=== PATIENT | male | born 1955 | race Caucasian/White ===

== ENCOUNTER 2021-01-31 16:24 | Observation (INO) | payer OTHER ==
[~2021-01-31] VITALS: Ht 185 cm; Wt 86.0 kg
[~2021-01-31 16:24] MED LIST: ENXP40I.4 SC; FAMO10TA43 PO; METH750T3 PO; NAPR375T2 PO; OXYC-12 PO
[2021-01-31] MEDS ORDERED: fentaNYL INJ 100 MCG/2 ML AMP IVP ONE (16:45)
[2021-01-31 16:52] LABS: BASOPHILS % (AUTO) 1 % (0-10); EOSINOPHILS # (AUTO) 0.3 10^3/uL (0.0-0.3); EOSINOPHILS % (AUTO) 6 % (0-10); HEMATOCRIT 36 % (40-54); HEMOGLOBIN 11.9 g/dL (13.3-17.7); LYMPHOCYTES # (AUTO) 1.3 10^3/uL (1.0-4.0); LYMPHOCYTES % (AUTO) 25 % (12-44); MEAN CORPUSCULAR HEMOGLOBIN 31 pg (25-34); MEAN CORPUSCULAR HGB CONC 33 g/dL (32-36); MEAN CORPUSCULAR VOLUME 93 fL (80-99); MEAN PLATELET VOLUME 8.9 fL (9.0-12.2); MONOCYTES # (AUTO) 0.4 10^3/uL (0.0-1.0); MONOCYTES % (AUTO) 7 % (0-12); NEUTROPHILS % (AUTO) 60 % (42-75); PLATELET COUNT 246 10^3/uL (130-400)
[2021-01-31 17:00] LABS: ALBUMIN 4.2 GM/DL (3.2-4.5); CHLORIDE 101 MMOL/L (98-107); POTASSIUM 4.4 MMOL/L (3.6-5.0); SODIUM 137 MMOL/L (135-145)
[2021-01-31 17:01] LABS: CALCIUM 9.1 MG/DL (8.5-10.1)
[2021-01-31 17:02] LABS: GLUCOSE 114 MG/DL (70-105); TOTAL PROTEIN 7.5 GM/DL (6.4-8.2)
--- NOTE | 2021-01-31 17:02 | Diagnostic Imaging Report ---
Clinical indication: Patient with sepsis. Exam: Portable chest x-ray, upright view. Comparisons: Chest x-ray dated 06/29/2013. Findings: Lungs/pleura: There is minimal atelectasis or scarring of left lung base. Otherwise, lungs are clear. There is no pneumothorax. There is no pleural effusion. Mediastinum: Unremarkable. Pulmonary vasculature: Unremarkable. Heart: Unremarkable. Bones/extrathoracic soft tissue: There are hypertrophic spurs involving the thoracic spine. Impression: There is no radiographic evidence of acute cardiopulmonary process. Dictated by: Dictated on workstation # [id number]
--- NOTE | 2021-01-31 17:02 | Diagnostic Imaging Report ---
CLINICAL INDICATION: Patient with foot pain. EXAM: X-ray of the right foot, 3 views. COMPARISON: None. FINDINGS: There is no acute fracture or dislocation. There is no significant bone or joint abnormality. IMPRESSION: There is no acute fracture or dislocation. Dictated by: Dictated on workstation # [id number]
[2021-01-31 17:03] LABS: CARBON DIOXIDE 24 MMOL/L (21-32); INR 0.9 (0.8-1.4); PROTHROMBIN TIME PATIENT 12.5 SEC (12.2-14.7)
[2021-01-31 17:04] LABS: BILIRUBIN,TOTAL 0.4 MG/DL (0.1-1.0)
[2021-01-31 17:06] LABS: BILIRUBIN,URINE NEGATIVE (NEGATIVE); CLARITY,URINE CLEAR; COLOR,URINE YELLOW; GLUCOSE, URINE (UA) NEGATIVE (NEGATIVE); KETONES,URINE NEGATIVE (NEGATIVE); LEUKOCYTE ESTERASE ,URINE NEGATIVE (NEGATIVE); NITRITE,URINE NEGATIVE (NEGATIVE); PH,URINE 5.5 (5-9); PROTEIN,URINE NEGATIVE (NEGATIVE)
[2021-01-31 17:06] LABS: ALKALINE PHOSPHATASE 72 U/L (40-136); CREATININE SERUM 0.84 MG/DL (0.60-1.30); GFR ESTIMATED > 60
[2021-01-31 17:07] LABS: BUN/CREATININE RATIO 18
[2021-01-31 17:09] LABS: ALANINE AMINOTRANSFERASE 11 U/L (0-55)
[2021-01-31 17:11] LABS: ERYTHROCYTE SEDIMENTATION RATE 32 MM/HR (0-30)
[2021-01-31 17:13] LABS: BACTERIA,URINE NEGATIVE /HPF; SQUAMOUS EPITHELIAL CELL,UR RARE /HPF
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
[2021-01-31] MEDS ORDERED: cefTRIAXone FOR IV USE 1,000 MG in WATER (STERILE) FOR INJECTION 10 ML IV ONE (18:45)
[2021-01-31] MEDS ORDERED: RX-OXYCODONE/APAP 5-325 MG #4 TAB PK PO PRN (19:00)
[2021-01-31] MEDS ORDERED: oxyCODONE/APAP 5/325MG (PERCOCET 5) TABLET PO ONE (19:00)
--- NOTE | 2021-01-31 19:50 | Diagnostic Imaging Report ---
INDICATION: Right leg pain and swelling COMPARISON: None. TECHNIQUE: Duplex, grayscale and color-flow imaging of the right lower extremity venous system was performed. FINDINGS: The common femoral vein, superficial femoral vein, profunda femoris and popliteal veins are normal. These vessels show normal compressibility, color flow and Doppler augmentation. Evaluation of the deep calf veins demonstrates thrombus within the mid to distal peroneal vein. Posterior tibial vein is patent. IMPRESSION: 1. Occlusive thrombus of the peroneal vein of the right calf. 2. No cephalad extension into the thigh. Dictated by: Dictated on workstation # [id number]
[2021-01-31] MEDS ORDERED: PANTOPRAZOLE 40 MG (PROTONIX) VIAL IV ONE (20:00)
[2021-01-31] MEDS ORDERED: ENOXAPARIN 100 MG/1 ML (LOVENOX) SYR SC ONE (20:15)
[2021-01-31] MEDS ORDERED: CLINDAMYCIN 150 MG (CLEOCIN) CAP PO ONE (20:15)
[2021-01-31] MEDS ORDERED: morphine ER 15 MG (MS CONTIN) TAB PO ONE (20:15)
[2021-01-31] MEDS ORDERED: ONDANSETRON 4 MG/2 ML (SDV) Z0FRAN IVP PRN (21:30)
[2021-01-31 21:33] VITALS: BP 149/97
[2021-01-31] MEDS ORDERED: OXYC20TA3 PO (22:02)
[2021-01-31] MEDS ORDERED: NF-ACI30T PO (22:02)
[2021-01-31] MEDS ORDERED: MORP60TA28 PO (22:02)
[2021-01-31] MEDS ORDERED: DULO20CA PO (22:08)
[2021-01-31] MEDS ORDERED: GABA300C PO (22:09)
[2021-01-31 23:33] VITALS: BP 132/76
[2021-02-01 03:31] VITALS: BP 163/81
[2021-02-01] MEDS ORDERED: CLINDAMYCIN 600 MG/50 ML IVPB 50 ML IV SCH (04:00)
[2021-02-01 05:30] LABS: BASOPHILS % (AUTO) 1 % (0-10); EOSINOPHILS # (AUTO) 0.3 10^3/uL (0.0-0.3); EOSINOPHILS % (AUTO) 11 % (0-10); HEMATOCRIT 35 % (40-54); HEMOGLOBIN 11.6 g/dL (13.3-17.7); LYMPHOCYTES # (AUTO) 0.9 10^3/uL (1.0-4.0); LYMPHOCYTES % (AUTO) 34 % (12-44); MEAN CORPUSCULAR HEMOGLOBIN 30 pg (25-34); MEAN CORPUSCULAR HGB CONC 33 g/dL (32-36); MEAN CORPUSCULAR VOLUME 91 fL (80-99); MEAN PLATELET VOLUME 9.2 fL (9.0-12.2); MONOCYTES # (AUTO) 0.3 10^3/uL (0.0-1.0); MONOCYTES % (AUTO) 10 % (0-12); NEUTROPHILS # (AUTO) 1.2 10^3/uL (1.8-7.8); NEUTROPHILS % (AUTO) 43 % (42-75); PLATELET COUNT 221 10^3/uL (130-400); WHITE BLOOD COUNT 2.7 10^3/uL (4.3-11.0)
[2021-02-01 05:43] LABS: CHLORIDE 102 MMOL/L (98-107); SODIUM 139 MMOL/L (135-145)
[2021-02-01 05:45] LABS: CALCIUM 8.5 MG/DL (8.5-10.1); GLUCOSE 93 MG/DL (70-105)
[2021-02-01 05:47] LABS: CARBON DIOXIDE 24 MMOL/L (21-32)
[2021-02-01 05:49] LABS: CREATININE SERUM 0.75 MG/DL (0.60-1.30); GFR ESTIMATED > 60
[2021-02-01 05:50] LABS: BUN/CREATININE RATIO 16
[2021-02-01 07:55] VITALS: BP 120/70
[2021-02-01] MEDS ORDERED: ENOXAPARIN 100 MG/1 ML (LOVENOX) SYR SC SCH (08:00)
[2021-02-01] MEDS: morphine ER 15 MG (MS CONTIN) TAB PO SCH ×2 (08:15→20:14)
[2021-02-01] MEDS: PANTOPRAZOLE 40 MG (PROTONIX) TAB PO SCH (08:15)
[2021-02-01] MEDS ORDERED: PANT40TA52 PO (10:11)
[2021-02-01] MEDS ORDERED: OXYC20TA54 PO (10:11)
[2021-02-01] MEDS ORDERED: GABA300C PO (10:11)
[2021-02-01] MEDS ORDERED: HYOS-6 PO (10:11)
[2021-02-01] MEDS ORDERED: CLIN300C12 PO (10:11)
[2021-02-01] MEDS ORDERED: MORP60TA69 PO (10:11)
[2021-02-01] MEDS ORDERED: polyethylene glycoL POWDER 17 GM (MIRALAX) PACK PO PRN (11:30)
[2021-02-01] MEDS ORDERED: ONDANSETRON 4 MG/2 ML (SDV) Z0FRAN IV PRN (11:30)
[2021-02-01] MEDS ORDERED: diphenhydrAMINE 25 MG TAB (BENADRYL) PO PRN (11:30)
[2021-02-01] MEDS ORDERED: MELATONIN 3 MG TABLET PO PRN (11:30)
[2021-02-01] MEDS ORDERED: BISACODYL 10 MG SUPP (DULCOLAX) PR PRN (11:30)
[2021-02-01] MEDS ORDERED: ONDANSETRON 4 MG (ZOFRAN) ORAL DISSOLVE TAB PO PRN (11:30)
[2021-02-01] MEDS ORDERED: MILK OF MAGNESIA 400 MG/5 ML 30 ML UDC PO PRN (11:30)
[2021-02-01] MEDS ORDERED: ANTACID SUSP 30 ML UDC (MYLANTA) PO PRN (11:30)
[2021-02-01] MEDS ORDERED: ACETAMINOPHEN 325 MG TABLET PO PRN (11:30)
[2021-02-01 12:12] VITALS: BP 127/71
--- NOTE | 2021-02-01 14:32 | History & Physical-Hospitalist ---
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 He has a cut on his right great toe and has been on antibiotics for a cellulitis. He denies any recent injury to his leg. He denies any immobility. He denies shortness of breath and cough. He denies chest pain. He denies fevers and chills. He denies abdominal pain, nausea, and vomiting. Exam Limitations: no limitations Date Seen 02/01/21 Time Seen by a Provider: 09:50 Attending Physician Xiomy Leija MD PCP No,Local Physician Referring Physician Date of Admission January 31, 2021 at 20:24 Home Medications & Allergies Home Medications Reviewed patient Home Medication Reconciliation performed by pharmacy medication reconciliations ground water technician and/or nursing. Patients Allergies have been reviewed. Allergies Allergies Coded Allergies Penicillins (Verified Allergy, Unknown, 01/31/21) Procaine HCl (Verified Allergy, Unknown, 01/31/21) clarithromycin (Verified Allergy, Unknown, 01/31/21) Patient Social History Tobacco Use?: No Smoking Status: Never a Smoker Use of E-Cig and/or Vaping dev: No Substance use?: No Alcohol Use?: No Pt stated abuse/neglect: No Immunizations Up To Date Influenza Vaccine Up-to-Date: No; Not Current Tetanus Booster (TDap): Unknown Date of Pneumonia Vaccine: Jun 25, 2012 Current Status Do you have an Advance Directi: No Communicates: Verbally Primary Language: [place]an Preferred Spoken Language: [place]an Is interpretation needed?: No Sensory deficits: Hearing impairment Implanted or Applied Medical D: None Past Medical History Prostate cancer Radiation colitis and cystitis Chronic GI bleeding GERD Chronic pain Family Medical History Family Hx: Noncontributory Review of Systems Constitutional: no symptoms reported EENTM: no symptoms reported Respiratory: no symptoms reported Cardiovascular: no symptoms reported Gastrointestinal: no symptoms reported Genitourinary: no symptoms reported Musculoskeletal: no symptoms reported Skin: no symptoms reported Psychiatric/Neurological: No Symptoms Reported Physical Exam Physical Exam Vital Signs Vital Signs - First Documented 01/31/21 16:34 Temp 36.6 Pulse 101 Resp 22 B/P (MAP) 184/96 (125) Pulse Ox 96 O2 Delivery Room Air Capillary Refill : Less Than 3 Seconds Height, Weight, BMI Height: '" Weight: 184lbs. 4.0oz. 83.910735fc; 25.12 BMI Method: General Appearance: No Apparent Distress, WD/WN HEENT: PERRL/EOMI, Pharynx Normal Neck: Normal Inspection, Supple Respiratory: Lungs Clear, Normal Breath Sounds, No Respiratory Distress Cardiovascular: Regular Rate, Rhythm, No Murmur Gastrointestinal: Normal Bowel Sounds, Non Tender, Soft Extremity: Calf Tenderness, Swelling Neurologic/Psychiatric: Alert, Oriented x3, No Motor/Sensory Deficits, Normal Mood/Affect Skin: Normal Color, Other (right distal great toe laceartion without surrounding inflammation) Results Results/Procedures Labs Laboratory Tests 01/31/21 16:39 02/01/21 05:20 Patient resulted labs reviewed. Imaging: Reviewed Imaging Report Assessment/Plan Admission Diagnosis Acute DVT Admission Status: Observation Assessment and Plan Acute DVT Chronic GI bleeding Radiation colitis and cystitis Ultrasound confirmed acute DVT Started on Lovenox Transition to Eliquis due to lower risk of GI bleeding Prostate cancer s/p radiation Chronic pain Continue pain regimen Cellulitis No evidence of ongoing cellulitis Stop antibiotics Diagnosis/Problems Diagnosis/Problems (1) Right leg DVT Status: Acute Qualifiers: Affected thrombotic vein of extremity: peroneal Chronicity: acute Qualified Codes: I82.451 - Acute embolism and thrombosis of right peroneal vein (2) Chronic GI bleeding Status: Chronic NOLA RAYA MD February 01, 2021 14:32
[2021-02-01 15:41] VITALS: BP 133/76
[2021-02-01 19:25] VITALS: BP 116/69
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
[2021-02-01] MEDS ORDERED: cefTRIAXone 1,000 MG/SWFI 10 ML IV PUSH IV SCH ×2 (20:00)
[2021-02-01] MEDS: polyethylene glycoL POWDER 17 GM (MIRALAX) PACK PO SCH (20:13)
[2021-02-01] MEDS: APIXABAN 5 MG (ELIQUIS) TABLET PO SCH (20:14)
[2021-02-01] MEDS: SENNOSIDES 8.6 MG (SENOKOT) TAB PO SCH (20:14)
[2021-02-01] MEDS: DOCUSATE SODIUM 100 MG (COLACE) CAP PO SCH (20:14)
[2021-02-01] MEDS ORDERED: DOCUSATE SODIUM 100 MG (COLACE) CAP PO SCH (21:00)
[2021-02-02 00:01] VITALS: BP 147/76
[2021-02-02 03:51] VITALS: BP 117/68
[2021-02-02 06:05] LABS: ABSOLUTE RETIC # 68 10e9/uL (24-90); BASOPHILS % (AUTO) 1 % (0-10); EOSINOPHILS # (AUTO) 0.2 10^3/uL (0.0-0.3); EOSINOPHILS % (AUTO) 7 % (0-10); HEMATOCRIT 37 % (40-54); LYMPHOCYTES % (AUTO) 34 % (12-44); MEAN CORPUSCULAR HEMOGLOBIN 30 pg (25-34); MEAN CORPUSCULAR HGB CONC 33 g/dL (32-36); MEAN CORPUSCULAR VOLUME 92 fL (80-99); MEAN PLATELET VOLUME 9.3 fL (9.0-12.2); MONOCYTES # (AUTO) 0.3 10^3/uL (0.0-1.0); MONOCYTES % (AUTO) 10 % (0-12); NEUTROPHILS # (AUTO) 1.4 10^3/uL (1.8-7.8); NEUTROPHILS % (AUTO) 48 % (42-75); PLATELET COUNT 253 10^3/uL (130-400); RETICULOCYTE % 1.69 % (0.50-2.40)
[2021-02-02 08:00] VITALS: BP 132/74
[2021-02-02] MEDS: APIXABAN 5 MG (ELIQUIS) TABLET PO SCH ×2 (08:06→20:22)
[2021-02-02] MEDS: SENNOSIDES 8.6 MG (SENOKOT) TAB PO SCH ×2 (08:07→20:21)
[2021-02-02] MEDS: DOCUSATE SODIUM 100 MG (COLACE) CAP PO SCH ×2 (08:08→20:21)
[2021-02-02] MEDS: PANTOPRAZOLE 40 MG (PROTONIX) TAB PO SCH (08:08)
[2021-02-02] MEDS: morphine ER 15 MG (MS CONTIN) TAB PO SCH ×2 (08:09→20:22)
--- NOTE | 2021-02-02 10:32 | Progress Note - Hospitalist ---
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 He has a cut on his right great toe and has been on antibiotics for a cellulitis. He denies any recent injury to his leg. He denies any immobility. He denies shortness of breath and cough. He denies chest pain. He denies fevers and chills. He denies abdominal pain, nausea, and vomiting. Subjective/Events-last exam He continues to have right leg pain. He reports a "buzzing" feeling in his foot. He denies shortness of breath. He denies chest pain. He had a bowel movement and there was bright red blood in it. Focused Exam Lactate Level 01/31/21 16:39: Lactic Acid Level 0.94 Objective Exam Vital Signs Vital Signs Date Time Temp Pulse Resp B/P (MAP) Pulse Ox O2 Delivery O2 Flow Rate FiO2 02/02/21 08:00 Room Air 02/02/21 08:00 36.1 69 16 132/74 (93) 96 Capillary Refill : Less Than 3 Seconds General Appearance: No Apparent Distress, WD/WN Respiratory: Lungs Clear, Normal Breath Sounds, No Respiratory Distress Cardiovascular: Regular Rate, Rhythm, No Murmur Gastrointestinal: Normal Bowel Sounds, Non Tender, Soft Extremity: Calf Tenderness; No Inflammation; Swelling (Right leg) Skin: Warm/Dry, Ecchymosis (Right foot) Results/Procedures Lab Laboratory Tests 02/02/21 05:29 Patient resulted labs reviewed. Imaging: Reviewed Imaging Report Assessment/Plan Assessment and Plan Assess & Plan/Chief Complaint Acute DVT Chronic GI bleeding Radiation colitis and cystitis Ultrasound confirmed acute DVT Continue Eliquis, lower risk of GI bleeding Consult general surgery for endoscopic evaluation Prostate cancer s/p radiation Chronic pain Continue pain regimen Cellulitis No evidence of ongoing cellulitis Antibiotics discontinued Diagnosis/Problems Diagnosis/Problems (1) Right leg DVT Status: Acute Qualifiers: Affected thrombotic vein of extremity: peroneal Chronicity: acute Qualified Codes: I82.451 - Acute embolism and thrombosis of right peroneal vein (2) Chronic GI bleeding Status: Chronic NOLA RAYA MD February 02, 2021 10:32
[2021-02-02] MEDS: GABAPENTIN 300 MG (NEURONTIN) CAP PO SCH ×2 (11:43→20:21)
[2021-02-02 12:00] VITALS: BP 116/67
[2021-02-02] MEDS: HYOSCYAMINE 0.125 MG (LEVSIN) TAB SL PRN (15:01)
[2021-02-02 15:28] VITALS: BP 130/73
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
[2021-02-02 19:12] VITALS: BP 121/67
[2021-02-02] MEDS: polyethylene glycoL POWDER 17 GM (MIRALAX) PACK PO SCH (20:21)
[2021-02-03 00:22] VITALS: BP 137/80
[2021-02-03 04:00] VITALS: BP 121/75
[2021-02-03 08:12] VITALS: BP 146/72
[2021-02-03 08:42] LABS: HEMOGLOBIN 12.7 g/dL (13.3-17.7)
[2021-02-03] MEDS: APIXABAN 5 MG (ELIQUIS) TABLET PO SCH (08:55)
[2021-02-03] MEDS: DOCUSATE SODIUM 100 MG (COLACE) CAP PO SCH (08:55)
[2021-02-03] MEDS: SENNOSIDES 8.6 MG (SENOKOT) TAB PO SCH (08:56)
[2021-02-03] MEDS: morphine ER 15 MG (MS CONTIN) TAB PO SCH (08:56)
[2021-02-03] MEDS: HYOSCYAMINE 0.125 MG (LEVSIN) TAB SL PRN (08:57)
[2021-02-03] MEDS: PANTOPRAZOLE 40 MG (PROTONIX) TAB PO SCH (08:57)
[2021-02-03] MEDS: GABAPENTIN 300 MG (NEURONTIN) CAP PO SCH ×2 (08:57→13:51)
[2021-02-03 11:40] VITALS: BP 122/73
--- NOTE | 2021-02-03 11:49 | Progress Note - Surgery ---
Subjective Date Seen by a Provider: February 03, 2021 Time Seen by a Provider: 08:10 Subjective/Events-last exam Patient no new complaints. Right leg doing okay. No blood per rectum. Denies n/v fever sweats chills shortness of breath or chest pain. On Eliquis. Hgb stable 12.7 Focused Exam Lactate Level 01/31/21 16:39: Lactic Acid Level 0.94 Objective Exam Vital Signs Date Time Temp Pulse Resp B/P (MAP) Pulse Ox O2 Delivery O2 Flow Rate FiO2 02/03/21 11:40 36.0 79 18 122/73 (89) 95 Room Air 02/03/21 08:12 36.3 69 16 146/72 (96) 94 Room Air 02/03/21 08:00 Room Air 02/03/21 04:00 36.8 88 18 121/75 (90) 96 Room Air 02/03/21 00:22 37.4 72 18 137/80 (99) 97 Room Air 02/02/21 20:00 Room Air 02/02/21 19:12 36.7 81 16 121/67 (85) 96 Room Air 02/02/21 15:28 36.9 68 16 130/73 (92) 97 Room Air 02/02/21 12:00 36.0 71 18 116/67 (83) 95 Room Air I & O 02/03/21 07:00 Intake Total 1830 ml Output Total 600 ml Balance 1230 ml Capillary Refill : Less Than 3 Seconds General Appearance: No Apparent Distress, WD/WN HEENT: PERRL/EOMI, Pharynx Normal Neck: Normal Inspection, Supple Respiratory: Lungs Clear, No Accessory Muscle Use, No Respiratory Distress Cardiovascular: Regular Rate, Rhythm, No Murmur Gastrointestinal: non tender Extremity: Calf Tenderness; No Inflammation; Swelling (Right leg) Neurologic/Psychiatric: Alert, Oriented x3, No Motor/Sensory Deficits, Normal Mood/Affect Skin: Warm/Dry, Ecchymosis (Right foot) Lymphatic: No Adenopathy Results Lab Laboratory Tests 02/03/21 08:15: Hemoglobin 12.7L, Hematocrit 39L Microbiology 01/31/21 Blood Culture - Preliminary, Resulted No growth 01/31/21 Urine Culture - Final, Complete NO GROWTH Assessment/Plan Assessment/Plan Assessment/Plan bright red blood per rectum hx prostate cancer radiation proctitis right lower extremity dvt on eliquis hemoglobin stable follow needs colonoscopy to further evaluate, will set up for 02/16/21 needs eliquis held 2 days prior to procedure and bowel prep MYRNA MURPHY DO February 03, 2021 11:49
[2021-02-03] MEDS ORDERED: APIX5TAB PO (12:00)
[2021-02-03] MEDS ORDERED: OXYC20TA54 PO (12:00)
--- NOTE | 2021-02-03 15:01 | Discharge Summary ---
Discharge Summary Hospital Course Was the Problem List Reviewed?: Yes Problems/Dx: (1) Right leg DVT Status: Acute Qualifiers: Qualified Codes: I82.451 - Acute embolism and thrombosis of right peroneal vein (2) Chronic GI bleeding Status: Chronic Hospital Course Date of Admission: January 31, 2021 at 20:24 Admission Diagnosis : Acute DVT Family Physician/Provider: Genie,Local Physician Date of Discharge: 02/03/21 Discharge Diagnosis: Acute DVT Hospital Course: Harpal Haynes is a 65 year old male with PMH prostate cancer, radiation colitis/cystitis, chronic pain, who presented with right leg pain and swelling and was admitted with DVT. He has a history fo chronic GI bleeding associated with radiation colitis. He was started on anticoagulation with Lovenox initially and then transitioned to Eliquis. His hemoglobin remained stable. Surgery was consulted and plans to perform colonoscopy outpatient on February 16. Oncology was consulted and agreeed with Eliquis and colonoscopy. He will follow up with Dr. Saldivar in one month. He was discharged home in stable condition. Labs and Pending Lab Test: Laboratory Tests 02/03/21 08:15: Hemoglobin 12.7L, Hematocrit 39L Microbiology 01/31/21 Blood Culture - Preliminary, Resulted No growth 01/31/21 Urine Culture - Final, Complete NO GROWTH Home Meds Active Eliquis (Apixaban) 5 Mg Tablet 5 Mg PO BID 30 Days TAKE 2 TABLETS BID X 7 DAYS, THEN 1 TABLET BID Oxycontin (Oxycodone HCl) 20 Mg Tab.er.12h 20 Mg PO Q6H PRN 7 Days Reported Hyoscyamine Sulfate 0.125 Mg Tab.rapdis 0.125 Mg PO Q4H PRN Morphine Sulfate ER (Morphine Sulfate) 60 Mg Tablet.er 60 Mg PO Q12H Neurontin (Gabapentin) 300 Mg Capsule 1,200 Mg PO TID TAKES 4 (300MG) CAPS Pantoprazole Sodium 40 Mg Tablet.dr 40 Mg PO HS Assessment/Pt Instructions Take medications as prescribed. Begin taking Eliquis for DVT. Return with worsening GI bleeding, lightheadedness/dizziness, or if you feel like you are getting worse. Discharge Planning: <30 minutes discharge planning Discharge Instructions Discharge Diet: No Restrictions Activity as Tolerated: Yes Consultations Oncology, Surgery Discharge Physical Examination Vital Signs Vital Signs Date Time Temp Pulse Resp B/P (MAP) Pulse Ox O2 Delivery O2 Flow Rate FiO2 02/03/21 11:40 36.0 79 18 122/73 (89) 95 Room Air General Appearance: No Apparent Distress, WD/WN HEENT: PERRL/EOMI, Pharynx Normal Respiratory: Lungs Clear, Normal Breath Sounds, No Respiratory Distress Cardiovascular: Regular Rate, Rhythm, No Edema, No Murmur Gastrointestinal: Normal Bowel Sounds, Non Tender, Soft Extremity: Calf Tenderness, Swelling Skin: Normal Color, Warm/Dry Neurologic/Psychiatric: Alert, Oriented x3, No Motor/Sensory Deficits, Normal Mood/Affect Allergies: Coded Allergies: Penicillins (Verified Allergy, Unknown, 01/31/21) Procaine HCl (Verified Allergy, Unknown, 01/31/21) clarithromycin (Verified Allergy, Unknown, 01/31/21) Discharge Summary Date of Admission January 31, 2021 at 20:24 Date of Discharge Discharge Date: February 03, 2021 Discharge Time: 14:56 Admission Diagnosis Acute DVT Consults/Procedures Consulations Oncology, Surgery Discharge Diagnosis Acute DVT (1) Right leg DVT Status: Acute Qualifiers: Qualified Codes: I82.451 - Acute embolism and thrombosis of right peroneal vein (2) Chronic GI bleeding Status: Chronic NOLA RAYA MD February 03, 2021 15:00
[2021-02-03 15:32] VITALS: BP 107/61
[2021-02-03 17:00] VITALS: BP 107/61
[2021-02-08] MEDS ORDERED: APIXABAN 5 MG (ELIQUIS) TABLET PO SCH (21:00)
== END 2021-02-03 11:58 | disposition home or self-care (01) ==
LOC: EDUNIT# 16:24 → ER 16:26 → UNDOADMOB 20:24 → 4TH 20:24 → UNDODISOB 02-03 17:00
PROVIDERS: ADMIT Family Medicine; ATTEND Internal Medicine
DX: I82.451 Acute embolism and thrombosis of right peroneal vein (principal); N30.40 Irradiation cystitis without hematuria; K92.2 Gastrointestinal hemorrhage, unspecified; K52.89 Other specified noninfective gastroenteritis and colitis; K21.9 Gastro-esophageal reflux disease without esophagitis; J45.909 Unspecified asthma, uncomplicated; F32.9 Major depressive disorder, single episode, unspecified; L03.115 Cellulitis of right lower limb; Z79.01 Long term (current) use of anticoagulants; Z79.891 Long term (current) use of opiate analgesic; Z79.899 Other long term (current) drug therapy; Z90.79 Acquired absence of other genital organ(s); Z88.8 Allergy status to other drugs, medicaments and biological substances; Z88.0 Allergy status to penicillin; Z88.1 Allergy status to other antibiotic agents; Z79.1 Long term (current) use of non-steroidal anti-inflammatories (NSAID); Z96.641 Presence of right artificial hip joint; Z85.46 Personal history of malignant neoplasm of prostate
CPT/HCPCS: 71045; 73630; 80048; 80053; 81000; 82728; 83540; 83550; 83605; 85014; 85018; 85025 ×3; 85045; 85379; 85610; 85652; 85730; 86141 ×2; 87040; 87088; 93971; 96372; 96374; 96375; 99284; G0378; 36415

== ENCOUNTER → 2021-02-09 | Outpatient (CLI) | payer OTHER ==
[~2021-02-09] MED LIST changes: +APIX5TAB PO; +CLIN300C12 PO; +DULO20CA PO; +GABA300C PO; +HYOS-6 PO; +MORP60TA28 PO; +MORP60TA69 PO; +NF-ACI30T PO; +OXYC20TA3 PO; +OXYC20TA54 PO; +PANT40TA52 PO
== END | disposition home or self-care (01) ==
LOC: PREOP 05:43
PROVIDERS: ATTEND Surgery
DX: Z01.818 Encounter for other preprocedural examination (principal)